=== PATIENT | female | born 1990 | race African-American/Black ===

== ENCOUNTER 2022-07-30 09:03 | Emergency (ER) | payer BC, SELFPAY ==
[2022-07-30 09:14] VITALS: BP 154/95; PULSE 83; RESP 18; TEMP 37.1; O2SAT 100
--- NOTE | 2022-07-30 09:22 | ED.WOUNDLAC ---
HPI - Wound/Laceration General Chief Complaint: Wound/Laceration Stated Complaint: Abcess Time Seen by Provider: 07/30/22 09:11 History of Present Illness HPI narrative: Patient is a 32-year-old female here for evaluation of a lesion to her buttocks that she noticed about 5 days ago. Patient states that it is a tender swollen area that she likens to a boil. Patient applied tea tree oil upon symptom onset with good relief of her symptoms, but states that the pain returned back yesterday. Reports pain, is unsure if the lesion opened up and started draining. No fevers, chills, nausea, vomiting, rashes other places. Denies changes to stools. Patient states that she has had this in the past but it typically resolved without intervention. Related Data Allergies Allergy/AdvReac Type Severity Reaction Status Date / Time Shrimp Allergy Intermediate VOMITING,SW Uncoded 05/26/16 12:48 GIOVANNI Review of Systems Review of Systems: Gen.: Denies fevers or chills Eyes: Denies eye pain or visual change ENT: Denies congestion Respiratory: Denies shortness of breath or cough CV: Denies chest pain or palpitations GI: Denies abdominal pain nausea, emesis or diarrhea denies burning, urgency, frequency or hematuria Musculoskeletal: Denies back pain or muscle pain Neuro: Denies numbness, tingling, weakness or focal weakness Skin: Reports lesion to buttock Except as documented, all other systems reviewed and negative Exam Narrative: Gen: Alert, oriented, no acute distress Eyes: EOMI, no icterus Pulm: Respirations even and unlabored, symmetric thorax expansion, no audible stridor or visible cyanosis CV: Regular rate per telemetry GI: No distension, no voluntary/involuntary guarding Neuro: AOx4, moves all extremities without apparent difficulty or weakness, follows commands Skin: Patient has a 2 x 3 cm area of fluctuance and induration at the 7 o'clock position adjacent to the rectum Psych: Normal mood/affect, insight/judgement good, adequate fund of knowledge, recent/remote memory intact Course Vital Signs Vital signs: Vital Signs Temperature 98.8 F 07/30/22 09:14 Pulse Rate 83 07/30/22 09:14 Respiratory Rate 18 07/30/22 09:14 Blood Pressure 154/95 H 07/30/22 09:14 Pulse Oximetry 100 07/30/22 09:14 Oxygen Delivery Room Air 07/30/22 09:14 Temperature 98.8 F 07/30/22 09:14 Pulse Rate 83 07/30/22 09:14 Respiratory Rate 18 07/30/22 09:14 Blood Pressure 154/95 H 07/30/22 09:14 Pulse Oximetry 100 07/30/22 09:14 Oxygen Delivery Room Air 07/30/22 09:14 Procedures Abscess I/D peace-anal: Date of Incision: 07/30/22 Time of Incision: Side (if applicable): left Sedation/analgesia: none Local Anesthetic: lidocaine 1% Amount of anesthesia used (mL): 2 Technique: incised with #11 blade Amount of fluid expressed (mL): 5 Irrigation: No Packing used?: plain I&D Results: Pus and Blood MDM - Wound/Laceration MDM Narrative Medical decision making narrative: 32-year-old female here for evaluation of a lesion to her buttocks that appears consistent with a small perianal abscess. She has no systemic symptoms. She is nontoxic-appearing and has normal vital signs, afebrile. The lesion was incised with return of purulent material. Packing was placed. She will be discharged home with antibiotics and to follow-up with her primary care provider. Return precautions discussed and she voiced understanding. Discharge Plan Discharge Clinical Impression: Abscess Patient Disposition: Home, Self-Care Condition: Stable Instructions: Antibiotic Form, Abscess (ED), Sitz Bath (DC) Additional Instructions: Your abscess was drained today. Please keep the packing in place for about 7 days. Take the antibiotics as directed. Take sitz bath as directed on the instructions. Return to the ED if you develop a fever, the abscess comes back, yo
[2022-07-30] MEDS: LIDOCAINE/PRILOCAINE CREAM 2.5-2.5% TUBE 1 EACH TOPICAL (10:26)
[2022-07-30] MEDS: IBUPROFEN 600 MG TABLET PO (10:26)
== END 2022-07-30 11:58 | disposition home or self-care (01) ==
PROVIDERS: Emergency Provider Emergency Medicine
DX: L02.31 Cutaneous abscess of buttock (principal)
CPT/HCPCS: 46050; 99283; A9270